=== PATIENT | male | born 2005 | race Caucasian/White ===

== ENCOUNTER 2023-07-11 11:31 | Emergency (ER) | payer BC, OTHER, SELFPAY ==
[2023-07-11 11:46] VITALS: BP 145/96
[2023-07-11 12:16] LABS: % Basophils 1.2 % (0-2); % Eosinophils 1.1 % (0-6); % Immature Granulocytes 0.1 % (0-0.5); % Lymphocytes 31.9 % (20.5-51.1); % Monocytes 6.7 % (1.7-9.3); Absolute Basophils 0.1 10^3/uL (0-0.2); Absolute Eosinophils 0.1 10^3/uL (0-0.7); Absolute Lymphocytes 2.4 10^3/uL (1.2-3.4); Absolute Monocytes 0.5 10^3/uL (0.1-0.6); Absolute Neutrophils 4.4 10^3/uL (1.4-6.5); Hematocrit 44.8 % (39.0-52.0); Hemoglobin 15.8 g/dL (13.0-18.0); Mean Corp Hgb Conc. 35.3 g/dL (33.0-37.0); Mean Corpuscular Volume 85.2 fL (80.0-94.0); Mean Platelet Volume 10.5 fL (7.4-10.4); Nucleated Red Blood Cells % 0 % (-); Platelet Count 231 10^3/uL (130-400); Red Blood Cell Count 5.26 10^6/uL (4.70-6.10); Red Cell Dist. Width 12.8 % (11.5-14.5); White Blood Cell Count 7.4 10^3/uL (4.8-10.8)
[2023-07-11 12:43] LABS: ALT (SGPT) 23 U/L (0-50); AST (SGOT) 33 U/L (17-59); Albumin 4.9 g/dl (3.5-5.0); Alkaline Phosphatase 112 U/L (38-126); Blood Urea Nitrogen 13 mg/dl (9-20); Calcium 9.9 mg/dl (8.4-10.2); Carbon Dioxide 27 mmol/L (22-30); Chloride 103 mmol/L (98-107); Glucose 99 mg/dl (70-99); Potassium 4.2 mmol/L (3.5-5.1); Sodium 139 mmol/L (135-145); Total Bilirubin 0.9 mg/dl (0.2-1.3); eGFR > 60.00
[2023-07-11 12:56] LABS: Troponin I < 0.012 ng/ml
--- NOTE | 2023-07-11 15:27 | ED.GENMED ---
History of Present Illness
<Susan eGnao PA-C - Last Filed: 07/11/23 17:53>
General
Chief Complaint: Chest Pain
Source: patient
Exam Limitations: none
Time Seen by Provider: 07/11/23 14:52
Nursing documentation reviewed up to this point in time: agreed with
Travel History
Have you had any contact with someone who has COVID-19?: No
Do you have any symptoms of coronavirus? Fever > 100 degrees, chills, cough, shortness of breath, sore throat, loss of taste or smell, muscle aches, or headache?: No
History of Present Illness
History of Present Illness:
Patient is a 17-year-old male with no significant past medical history presenting to the emergency department for evaluation of acute onset left-sided chest pain with associated shortness of breath this morning. Patient states that he was on his
ride to work smoking a cigarette when he suddenly felt a sharp pain in his left chest with associated shortness of breath. At that time he states pain was worse with deep breaths and coughing. He stayed in his work truck while he was experiencing
symptoms and then decided to come to the emergency department for evaluation. Patient states that the symptoms have slowly improved over the day and at this point he is asymptomatic.
Patient denies any recent viruses or illnesses. He denies any fever, chills he denies any nausea, vomiting. He denies any pain in his lower legs Patient denies any personal or family history of blood clots or clotting disorders. Patient denies
any recent travel or recent surgery.
Patient smokes about a pack of cigarettes a week and has been for many years.
Past History
<Susan Genao PA-C - Last Filed: 07/11/23 17:53>
Past History
ED Past Medical History: None
ED Past Surgical History: None
Social History
Tobacco: Smoker
Alcohol: None
Drug: None
Personal: Single
Phy Exam
<Susan Genao PA-C - Last Filed: 07/11/23 17:53>
Physical Exam
Physical Exam:
General: In no apparent distress, nontoxic appearing
Vitals: Mildly hypertensive, otherwise vital signs stable; afebrile
HEENT: Atraumatic, normocephalic; pupils equal round and reactive to light bilaterally, protecting airway, uvula midline
Neck: appears supple. Trachea midline
CV: Regular rate and rhythm, heart sounds normal, no evidence of cyanosis; anterior chest wall nontender to palpation
Resp: No evidence of respiratory distress, lungs clear bilaterally
Abd: Soft, nontender, non-distended
Extremities: No deformities, no evidence of cyanosis or edema; DP pulses palpable and equal bilaterally, no tenderness, edema, erythema of calves bilaterally
Neuro: alert and oriented x 3; grossly intact
Psych: Normal affect
Skin: Intact, no bruises
Scores
<Susan Genao PA-C - Last Filed: 07/11/23 17:53>
Heart Score for Chest Pain Patients
STEMI patient?: No
History: Slightly or Non-Suspicious
ECG: Normal
Age: </= 45 years
Risk Factors: 1 or 2 Risk Factors
Troponin: </= Normal Limit
Heart Score for Chest Pain Patients: 1
Heart Score Risk: 2.5% MACE over next 6 weeks
PERC Rule Criteria
Age <50 years: Yes
HR <100 bpm: Yes
Room air oxygen sat >94%: Yes
History of DVT or PE: No
Recent trauma or surgery: No
Hemoptysis: No
Exogenous estrogen: No
Clinical signs suggestive of DVT: No
: No
Considered low risk for PE: Yes
PERC Score: 0
PE can be excluded by PERC: Yes
<Priya Riddle MD - Last Filed: 07/11/23 20:07>
Heart Score for Chest Pain Patients
Heart Score for Chest Pain Patients: 1
Heart Score Risk: 2.5% MACE over next 6 weeks
PERC Rule Criteria
PERC Score: 0
PE can be excluded by PERC: Yes
Course
<Susan Genao PA-C - Last Filed: 07/11/23 17:53>
Orders/Labs/Results
Orders:
Orders
07/11/23 11:48
Electrocardiogram (*1) Urgent
Reason for Study: Chest Pain
07/11/23 11:49
EKG- Treatment ONCE
07/11/23 11:54
Complete Blood Count/With Diff Urgent
Comprehensive Metabolic Panel Urgent
Troponin I Urgent
07/11/23 16:26
D-Dimer Urgent
07/11/23 16:58
CR Chest - 2 Views Urgent
Comment:
Reason For Exam: chest pain, shortness of breath
Abnormal Lab Results
07/11/23
11:54
MPV 10.5 H fL
(7.4-10.4)
07/11/23 11:54
07/11/23 11:54
Vital Signs
Initial and Last Documented VS:
Initial Vital Signs
Temp Pulse Resp BP Pulse Ox
98.2 F 89 18 145/96 97
07/11/23 11:46 07/11/23 11:46 07/11/23 11:46 07/11/23 11:46 07/11/23 11:46
Last Documented Vital Signs
Temp Pulse Resp BP Pulse Ox
98.8 F 90 16 140/90 97
07/11/23 17:36 07/11/23 17:36 07/11/23 17:36 07/11/23 17:36 07/11/23 17:36
<Priya Riddle MD - Last Filed: 07/11/23 20:07>
Orders/Labs/Results
Orders:
Orders
07/11/23 11:48
Electrocardiogram (*1) Urgent
Reason for Study: Chest Pain
07/11/23 11:49
EKG- Treatment ONCE
07/11/23 11:54
Complete Blood Count/With Diff Urgent
Comprehensive Metabolic Panel Urgent
Troponin I Urgent
07/11/23 16:26
D-Dimer Urgent
07/11/23 16:58
CR Chest - 2 Views Urgent
Comment:
Reason For Exam: chest pain, shortness of breath
Abnormal Lab Results
07/11/23
11:54
MPV 10.5 H fL
(7.4-10.4)
07/11/23 11:54
07/11/23 11:54
Vital Signs
Initial and Last Documented VS:
Initial Vital Signs
Temp Pulse Resp BP Pulse Ox
98.2 F 89 18 145/96 97
07/11/23 11:46 07/11/23 11:46 07/11/23 11:46 07/11/23 11:46 07/11/23 11:46
Last Documented Vital Signs
Temp Pulse Resp BP Pulse Ox
98.8 F 90 16 140/90 97
07/11/23 17:36 07/11/23 17:36 07/11/23 17:36 07/11/23 17:36 07/11/23 17:36
<Susan Genao PA-C - Last Filed: 07/11/23 17:53>
MDM/Problems Addressed
Differential Diagnosis Includes:
Not limited to: Costochondritis, bronchitis, pneumonia, pleurisy, pericarditis, myocarditis, pneumothorax, PE, doubt ACS
MDM/Problems Addressed:
Patient is a 17-year-old male presenting to the emergency department following episode of left-sided chest pain and shortness of breath earlier today after smoking cigarette. He denies any exertional component to pain, although there was a somewhat
pleuritic component. Patient's vital signs are stable, afebrile. He is maintaining oxygen saturation of 97% on room air. Exam as above. He is extremely well-appearing, no apparent distress. Heart rate regular, lungs clear. Chest pain is not
reproducible. No clinical evidence of DVT on exam. Labs obtained in triage are unremarkable. Initial troponin is negative. EKG shows sinus rhythm with a rate of 81 and right axis deviation. Given history of smoking and pleuritic chest pain�will
check D-dimer. Plan for chest x-ray if D-dimer negative.
D-dimer is negative. Patient remains asymptomatic. Will order chest x-ray.
Chest x-ray shows no evidence of acute cardiopulmonary process. Patient has remained asymptomatic since arriving to emergency department, in no apparent respiratory distress with stable vital signs. I feel he stable for discharge with appropriate
return precautions. Discussed importance of smoking cessation. Patient will follow-up with his primary care provider for further evaluation/management.
Chronic conditions affecting care:
History of smoking
Acute Exacerbation and/or Progression of Chronic Illness:
N/A
<Susan Genao PA-C - Last Filed: 07/11/23 17:53>
*Radiology
Radiology exam reviewed: preliminary read by ED provider and radiology read reviewed
*Pulse Oximetry
Patient hypoxic: no
*EKG
Interpreted by ED Provider?: Yes
EKG Intrepretation Date: 07/11/23
Interpretation: abnormal
Comparison EKG: no comparison EKG present
Heart Rate: 81
Rate: normal
Rhythm: sinus and sinus arrhythmia
[place]: right axis deviation
Ischemia: no ischemia
*[place] Interpretation
Rate: [place]- N/A
*Critical Care Note
Total Time (30-74mins, 75-104mins- exclusive of procedures): Not Applicable
ED Attending Note
<Susan Genao PA-C - Last Filed: 07/11/23 17:53>
-
Portions of this chart may have been created with voice recognition software.� Occasional wrong word or��sound alike� substitutions may have occurred due to the inherent limitations of voice recognition software.
<Priya Riddle MD - Last Filed: 07/11/23 20:07>
ED Attending Note
Patient seen and examined by attending physician: Yes
I performed the substantive portion of visit, reviewed & personally made and approve the management plan that is documented in note by myself or BALBIR.: Yes
ED Attending Note:
17 yr old male on his way to work, smlking a cigarette, noted L sided cp and mild sob. Sxs fully resolved now. No leg swelling, fever, vomiting, abd pain, back pain or other sxs. D dimer neg, labs/ecg/cxr unremarkable. Will d/c with close f/u.
Doubt pe/dissection/acs/ptx/ etc given unremkar w/u.
Discharge Plan
Departure
Patient Disposition: Home (Routine Discharge)
Date of Disposition: 07/11/23
Time of Disposition: 17:29
Patient with high blood pressure during this ER visit?: Yes
Condition: Good
Covid-19: Not Applicable
Discharge Problem:
Chest pain
Instructions: Chest Pain (DC), Quitting smoking
Prescriptions:
No Action
No Current Medications
0
Referrals:
UNKNOWN - PT DOES,NOT KNOW [Family Provider] -
Activity Restrictions/Additional Instructions:
- Return to the emergency department with any chest pain, shortness of breath/difficulty breathing, high fevers, persistent lightheadedness/dizziness, severe back pain, worsening in current symptoms, or any other concern
-As discussed�it is very important that you quit smoking.
-Stay well-hydrated.
-You should follow-up with your primary care provider for further evaluation/management
Interventions
Interventions:
*Risk Screen - Suicide Last Done: 07/11/23 11:46
*General Assessment Last Done: 07/11/23 11:46
*Neglect/Abuse Screening Last Done: 07/11/23 11:46
ED- Fall Risk Assessment Last Done: 07/11/23 15:35
*ED COVID-19 Vaccine History Last Done: 07/11/23 11:46
*Nursing Disposition Last Done: 07/11/23 17:38
ED- Cardiac Assessment Last Done: 07/11/23 15:35
Discharge Date and Time
Discharge Date/Time: 07/11/23 17:39
Print Language: SRI LANKAN
[2023-07-11 16:52] LABS: D-Dimer < 0.27 ug/mlFEU (0.00-0.50)
[2023-07-11 17:36] VITALS: BP 140/90
== END 2023-07-11 17:39 | disposition home or self-care (01) ==
LOC: EMR 11:31
PROVIDERS: Student in an Organized Health Care Education/Training Program; EMERGENCY PHYSICIAN Emergency Medicine
DX: R07.89 Other chest pain (principal); F17.210 Nicotine dependence, cigarettes, uncomplicated
CPT/HCPCS: 99283; 71046; 80053; 84484; 85025; 85379; 93005

== ENCOUNTER 2023-10-16 20:11 | Emergency (ER) | payer BC, SELFPAY ==
[2023-10-16 20:12] VITALS: BP 124/88
--- NOTE | 2023-10-16 21:27 | ED.GENMED ---
History of Present Illness
General
Chief Complaint: Skin Surface Trauma
Time Seen by Provider: 10/16/23 21:27
History of Present Illness
History of Present Illness:
HPI: The patient presents with a laceration to the left ear lobe. Bleeding is noted to the affected area. He denies any other injury. Denies head pain. There is no neck pain. He came in here for further evaluation as he could not clearly see
the wound well.
EXAM:
GENERAL: Well appearing in no distress
HEENT: The patient has an irregular laceration involving the superior aspect of the left pinna/helix which extends to the antihelix superiorly
NEUROLOGIC: Excellent strength all extremities, no coordination deficits
PSYCHIATRIC: Appropriate mental status, normal insight and judgement
EXTREMITIES: Nontender, no edema, moves all extremities equally
SKIN: No rash, no lesions
TIME OF INITIAL ENCOUNTER: 9:30 PM
NUMBER AND COMPLEXITY OF PROBLEMS ADDRESSED AT THE ENCOUNTER
� Chronic conditions affecting care: Has had a hiatal hernia, not diabetic
� Acute Exacerbation and/or Progression of Chronic Illness: This is an acute problem
� Differential Diagnosis includes: Laceration, concussion
AMOUNT AND/OR COMPLEXITY OF DATA TO BE REVIEWED AND ANALYZED
� I performed an independent evaluation of and my interpretation is:
EKG:
CT:
X-rays:
Laboratory Studies:
Other:
� Review of other/old records: The patient had normal CBC this past June
� Clinical information was obtained by an independent historian: I spoke to friend at bedside
� Prescriptions/Medications Considered but not given:
� Further testing considered but not performed:
RISK OF COMPLICATIONS AND/OR MORBIDITY OR MORTALITY OF PATIENT MANAGEMENT
� Social determinants of health affecting care: Lives at home
� Discussion with other providers:
� Escalation of care including admission/observation vs risk of discharge considered: The patient has obvious deformity upon arrival. The wound was irrigated and cleaned. He ultimately gave verbal for the procedure.
Past History
Past History
ED Past Medical History: None
ED Past Surgical History: None
Social History
Tobacco: Smoker
Alcohol: None
Drug: None
Personal: Single
Phy Exam
Physical Exam
Physical Exam:
See HPI
Course
Vital Signs
Initial and Last Documented VS:
Initial Vital Signs
Temp Pulse Resp BP Pulse Ox
97.9 F 120 22 124/88 98
10/16/23 20:12 10/16/23 20:12 10/16/23 20:12 10/16/23 20:12 10/16/23 20:12
Last Documented Vital Signs
Temp Pulse Resp BP Pulse Ox
97.9 F 120 22 124/88 98
10/16/23 20:12 10/16/23 20:12 10/16/23 20:12 10/16/23 20:12 10/16/23 20:12
Procedures
Laceration Closure
Left Ear:
Status of Wound: dirty
Description of Wound Edges: ragged
Preparation: cleaned with saline and other (Chlorhexidine)
Anesthesia: 1% Lidocaine
Type of Closure: single layer closure
Skin Closure Material: 5-0 nylon
Number of sutures: 4
*Critical Care Note
Total Time (30-74mins, 75-104mins- exclusive of procedures): Not Applicable
ED Attending Note
-
Portions of this chart may have been created with voice recognition software.� Occasional wrong word or��sound alike� substitutions may have occurred due to the inherent limitations of voice recognition software.
Discharge Plan
Departure
Patient Disposition: Home (Routine Discharge)
Date of Disposition: 10/16/23
Time of Disposition: 22:51
Patient with high blood pressure during this ER visit?: Yes
Discharge Problem:
Laceration of ear
Instructions: BLOOD PRESSURE
Prescriptions:
New
cephalexin 500 mg tablet
500 mg PO BID Qty: 6 0RF
Referrals:
NONE,* [Family Provider] -
Activity Restrictions/Additional Instructions:
Have stitches removed by your primary care doctor in approximately 7 to 10 days. I am placing you on antibiotics to prevent infection.
Interventions
Interventions:
*Risk Screen - Suicide Last Done: 10/16/23 20:14
*Neglect/Abuse Screening Last Done: 10/16/23 20:14
*Nursing Disposition Last Done: 10/16/23 22:54
ED-Skin Assessment Last Done: 10/16/23 21:45
Discharge Date and Time
Print Language: MAORI
== END 2023-10-16 22:56 | disposition home or self-care (01) ==
LOC: EMR 20:11
PROVIDERS: EMERGENCY PHYSICIAN Emergency Medicine
DX: S01.312A Laceration without foreign body of left ear, initial encounter (principal); X58.XXXA Exposure to other specified factors, initial encounter; F17.200 Nicotine dependence, unspecified, uncomplicated
CPT/HCPCS: 99282; 12011

== ENCOUNTER 2023-11-17 15:35 | Emergency (ER) | payer BC, SELFPAY ==
[2023-11-17 15:40] VITALS: BP 127/77
--- NOTE | 2023-11-17 15:46 | ED.PDOC.TRB ---
ED Provider Triage
-
Patient seen by provider in Triage?: Seen in Triage
17-year-old [id number] male presents with left hand and wrist pain. He caught his hand stuck in a fan for a large drenching machine. Fan blades hit his fingers and on his wrist. xrays pending
--- NOTE | 2023-11-17 16:02 | ED.MUSCINJ ---
HPI-Injury
General
Chief Complaint: Musculo-Skeletal Complaint
Source: patient
Time Seen by Provider: 11/17/23 15:50
History of Present Illness-Injury
Initial Injury comments:
17yo right hand dominant male with no significant past medical history presenting for evaluation of a left hand injury about 1 hour ago. Patient accidentally got his left hand caught in a metal fan at work. He sustained multiple lacerations during
the incident. He reports pain in his left hand and wrist which radiates up the arm. He also reports tingling to his left 2nd-4th digits. Unknown last Tdap.
Past History
Past History
ED Past Medical History: None
ED Past Surgical History: None
Social History
Tobacco: Smoker
Alcohol: None
Drug: None
Personal: Single
Phy Exam
General Physical Exam
General Presentation: well appearing and no apparent distress
General age: appears stated age
General Skin: warm and dry
General Habitus: normal
General Mental: alert
[place] Coma Scale
Eye Opening: Spontaneous
Verbal Response: Oriented
Motor Response: Obeys Commands
GCS Total Score: 15
Musculoskeletal Exam
Musculoskeletal Exam: full ROM
Skin Exam
Skin Exam: warm/dry and other (Lacerations to the 3rd and 4th digits which partially involve the lateral nail. Nail is firmly in place without subungual hematoma. No active bleeding. Abrasion also present to the dorsal hand. ROM of DIP, PIP, and MCP
joints intact. 2+ radial pulse and sensation intact. )
Psychiatric Exam
Psychiatric Exam: normal mood/affect
Injury Course
Orders/Labs/Results
Orders:
Orders
11/17/23 15:42
Hand, Left 3 View [CR Hand - Left Min 3 Views] Urgent
Comment:
Reason For Exam: pain
Wrist, Left 3 Views CR [CR Wrist - Left Min 3 Views] Urgent
Comment:
Reason For Exam: pain
11/17/23 16:00
Acetaminophen [Tylenol] 1,000 mg PO NOW STA
Ibuprofen [Motrin] 600 mg PO NOW STA
Tetanus/Diphth/Acelpertussis [Adacel] 0.5 ml IM .ONCE ONE
CR Forearm - Left 2 View Urgent
Comment:
Reason For Exam: injury
MDM/Problems Addressed
Differential Diagnosis Includes:
17yoM here with L hand/wrist pain after getting his hand caught in a metal fan. Lacerations noted on exam that do not require repair. No deformity present and ROM is intact. LUE is neurovascularly intact.
X-rays of L hand, wrist, and forearm obtained which are negative for fracture. Lacerations irrigated and bandages applied. Tdap updated. Supportive care discussed. Advised f/u with orthopedics if symptoms persist. ED return precautions discussed. He
was discharged in stable condition.
*Critical Care Note
Total Time (30-74mins, 75-104mins- exclusive of procedures): Not Applicable
ED Attending Note
-
Portions of this chart may have been created with voice recognition software.� Occasional wrong word or��sound alike� substitutions may have occurred due to the inherent limitations of voice recognition software.
Discharge Plan
Departure
Patient Disposition: Home (Routine Discharge)
Date of Disposition: 11/17/23
Time of Disposition: 16:24
Patient with high blood pressure during this ER visit?: No
Discharge Problem:
Injury of left hand
Instructions: Common Finger Injuries ED
Prescriptions:
No Action
cephalexin 500 mg tablet
500 mg PO BID Qty: 6 0RF
Referrals:
Jericho Jay MD [Active] -
Stand Alone Forms: Return to Work
Activity Restrictions/Additional Instructions:
Rest, ice, compress, and elevate your hand. Take Tylenol and ibuprofen for pain.
Please follow-up with orthopedics if symptoms persist. Return to the ER with any worsening symptoms or signs of infection.
Interventions
Interventions:
*Risk Screen - Suicide Last Done: 11/17/23 16:35
*General Assessment Last Done: 11/17/23 16:35
*Neglect/Abuse Screening Last Done: 11/17/23 16:35
*ED COVID-19 Vaccine History Last Done: 11/17/23 16:40
*Nursing Disposition Last Done: 11/17/23 16:41
ED-Musculoskeletal Assessment Last Done: 11/17/23 16:35
Discharge Date and Time
Discharge Date/Time: 11/17/23 16:41
Print Language: AMHARIC
[2023-11-17] MEDS: ADACEL 0.5 ML IM (16:13)
[2023-11-17] MEDS: TYLENOL 1000 MG PO (16:14)
[2023-11-17] MEDS: MOTRIN 600 MG PO (16:16)
== END 2023-11-17 16:41 | disposition home or self-care (01) ==
LOC: EMR 15:35
PROVIDERS: EMERGENCY PHYSICIAN Emergency Medicine
DX: S61.313A Laceration without foreign body of left middle finger with damage to nail, initial encounter (principal); S61.315A Laceration without foreign body of left ring finger with damage to nail, initial encounter; S60.512A Abrasion of left hand, initial encounter; W31.89XA Contact with other specified machinery, initial encounter; Y99.0 Civilian activity done for income or pay; F17.200 Nicotine dependence, unspecified, uncomplicated; Z23 Encounter for immunization
CPT/HCPCS: 99283; 90471; 73090; 73110; 73130; 90715